=== PATIENT | male | born 1970 | race Caucasian/White ===

== ENCOUNTER 2021-08-31 12:45 | Inpatient (IN) ==
[2021-08-31] MEDS ORDERED: 0.9 % Sodium Chloride 1,000 ML IVC ONE (14:38)
[2021-08-31] MEDS ORDERED: *HR* HYDROmorphone (PF) 1 MG/ML SYRINGE IVP ONE (14:38)
[2021-08-31 15:11] LABS: Basophils % 0.1 %; Eosinophils % 0.1 %; Hematocrit 45.5 % (37.5-50.1); Hemoglobin 15.3 g/dL (12.9-16.9); Immature Granulocytes % 0.9 % (0-4); Lymphocytes # 0.7 K/mcL (0.6-4.6); Lymphocytes % 3.9 %; Mean Corpuscular HGB Conc 33.6 g/dL (31.6-35.5); Mean Corpuscular Hemoglobin 31.7 pg (28.0-33.3); Mean Corpuscular Volume 94.4 fL (83.0-100.0); Mean Platelet Volume 9.6 fL (9.4-12.4); Monocytes # 0.7 K/mcL (0.0-1.3); Monocytes % 4.2 %; Neutrophils # 15.6 K/mcL (1.6-8.9); Platelet Count 420 K/mcL (140-400); Red Blood Count 4.82 M/mcL (4.19-5.50); Red Cell Distribution Width 16.6 % (11.5-14.5); Segmented Neutrophils % 90.8 %; White Blood Count 17.1 K/mcL (4.3-11.1)
[2021-08-31 16:01] LABS: BUN/Creatinine Ratio 25 (6-26); Blood Urea Nitrogen 23 mg/dL (6-20); Calcium 9.6 mg/dL (8.6-10.3); Carbon Dioxide 21 mEq/L (23-29); Chloride 101 mEq/L (98-107); Glucose 117 mg/dL (70-105); Osmolality,Calculated 277 (280-300); Potassium 5.8 mEq/L (3.5-5.1); Sodium 131 mEq/L (136-145); eGFR For African Americans > 60 (> 60); eGFR For Non-African Americans > 60 (> 60)
[2021-08-31] MEDS ORDERED: Ondansetron 4 MG/2 ML VIAL IVP PRN (16:22)
[2021-08-31] MEDS ORDERED: Naloxone 0.4 MG/ML INJ IVP PRN (16:22)
[2021-08-31] MEDS ORDERED: *HR* HYDROmorphone 2 MG/ML SYRINGE IVP PRN (16:24)
[2021-08-31] MEDS ORDERED: Insulin Human Regular 10 UNIT in 0.9 % Sodium Chloride 10 ML IV ONE ×2 (16:24→18:00)
[2021-08-31] MEDS ORDERED: *HR* Dextrose 50 % in Water (Vial) 50 ML VIAL IVP ONE (16:24)
[2021-08-31] MEDS ORDERED: *HR* Acetaminophen w/Cod 300-30 mg 1 TAB TABLET PO PRN ×2 (16:25→18:02)
[2021-08-31] MEDS ORDERED: Morphine Sulfate 2 MG/ML SYRINGE IVP PRN (16:25)
[2021-08-31] MEDS: *HR* HYDROmorphone 2 MG/ML SYRINGE IVP PRN (18:10)
[2021-08-31] MEDS: SODIUM ZIRCONIUM CYCLOSILICATE 5 GM POWD.PACK PO SCH (18:11)
[2021-08-31] MEDS ORDERED: *HR* Dextrose 50 % in Water (Syg) 50 ML SYRINGE ONE (18:44)
[2021-08-31] MEDS ORDERED: Gadolinium Contrast Agent (WT Based) IV PRN (18:59)
[2021-08-31] MEDS ORDERED: *HR* Dextrose 50 % in Water (Syg) 50 ML SYRINGE IVP ONE (19:00)
[2021-08-31 19:46] LABS: Adenovirus Not Detected (Not Detect); Bordetella Pertussis Not Detected (Not Detect); Chlamydophila pneumoniae Not Detected (Not Detect); Coronavirus 229E Not Detected (Not Detect); Coronavirus HKU1 Not Detected (Not Detect); Coronavirus NL63 Not Detected (Not Detect); Coronavirus OC43 Not Detected (Not Detect); Human Metapneumovirus Not Detected (Not Detect); Human Rhinovirus/Enterovirus Not Detected (Not Detect); Influenza A Subtype 2009 H1 Not Detected (Not Detect); Influenza B Not Detected (Not Detect); Mycoplasma pneumoniae Not Detected (Not Detect); Parainfluenza Virus 1 Not Detected (Not Detect); Parainfluenza Virus 2 Not Detected (Not Detect); Parainfluenza Virus 3 Not Detected (Not Detect); Parainfluenza Virus 4 Not Detected (Not Detect); Respiratory Syncytial Virus Not Detected (Not Detect); SARS-CoV-2 Not Detected (Not Detect)
[2021-08-31] MEDS: Morphine Sulfate 2 MG/ML SYRINGE IVP PRN (23:12)
[2021-09-01] MEDS: Morphine Sulfate 2 MG/ML SYRINGE IVP PRN ×2 (02:43→11:25)
[2021-09-01] MEDS: *HR* HYDROmorphone 2 MG/ML SYRINGE IVP PRN ×2 (03:58→10:10)
[2021-09-01 06:14] LABS: Basophils % 0.1 %; Eosinophils # 0.1 K/mcL (0.0-0.6); Eosinophils % 0.5 %; Immature Granulocytes % 0.9 % (0-4); Lymphocytes # 1.4 K/mcL (0.6-4.6); Lymphocytes % 8.8 %; Mean Corpuscular HGB Conc 33.3 g/dL (31.6-35.5); Mean Corpuscular Hemoglobin 31.8 pg (28.0-33.3); Mean Corpuscular Volume 95.5 fL (83.0-100.0); Mean Platelet Volume 9.5 fL (9.4-12.4); Monocytes # 1.2 K/mcL (0.0-1.3); Monocytes % 7.9 %; Neutrophils # 12.6 K/mcL (1.6-8.9); Platelet Count 381 K/mcL (140-400); Red Cell Distribution Width 16.7 % (11.5-14.5); Segmented Neutrophils % 81.8 %; White Blood Count 15.4 K/mcL (4.3-11.1)
[2021-09-01 06:43] LABS: BUN/Creatinine Ratio 25 (6-26); Blood Urea Nitrogen 19 mg/dL (6-20); Calcium 8.9 mg/dL (8.6-10.3); Carbon Dioxide 24 mEq/L (23-29); Chloride 103 mEq/L (98-107); Glucose 105 mg/dL (70-105); Magnesium 2.2 mg/dL (1.6-2.6); Osmolality,Calculated 281 (280-300); Phosphorous 2.4 mg/dL (2.7-4.5); Potassium 3.9 mEq/L (3.5-5.1); Sodium 134 mEq/L (136-145); eGFR For African Americans > 60 (> 60); eGFR For Non-African Americans > 60 (> 60)
[2021-09-01] MEDS: SODIUM ZIRCONIUM CYCLOSILICATE 5 GM POWD.PACK PO SCH (11:37)
[2021-09-01] MEDS: Nicotine 21 MG PATCH.TD24 TD SCH (11:38)
[2021-09-01] MEDS ORDERED: *HR* HYDROmorphone 2 MG/ML SYRINGE IVP ONE ×2 (12:28→15:57)
[2021-09-01] MEDS: *HR* LORazepam Oral Conc 2 MG/ML PO PRN (15:29)
[2021-09-01] MEDS: *HR* HYDROmorphone PCA *PREMADE* 20 MG/1MG/ML (20mL) PCA VIAL IVC PRN (18:26)
[2021-09-02] MEDS: *HR* LORazepam Oral Conc 2 MG/ML PO PRN ×3 (03:37→18:59)
[2021-09-02] MEDS: *HR* Enoxaparin 40 MG/0.4 ML SYRINGE SQ SCH (05:16)
[2021-09-02] MEDS: Nicotine 21 MG PATCH.TD24 TD SCH (08:00)
[2021-09-02] MEDS: *HR* HYDROmorphone PCA *PREMADE* 20 MG/1MG/ML (20mL) PCA VIAL IVC PRN ×2 (08:59→20:57)
[2021-09-02] MEDS ORDERED: Metoclopramide 10 MG/2 ML VIAL IVP ONE (15:05)
[2021-09-02] MEDS ORDERED: Metoclopramide 10 MG/2 ML VIAL IVP PRN (15:05)
[2021-09-02] MEDS: Gabapentin 300 MG CAPSULE PO SCH ×2 (15:51→19:44)
[2021-09-02] MEDS: polyethylene glycoL 3350 17 GM POWD.PACK PO SCH (17:09)
[2021-09-02] MEDS: 0.9 % Sodium Chloride 1,000 ML IVC SCH (17:09)
[2021-09-03] MEDS: *HR* LORazepam Oral Conc 2 MG/ML PO PRN (00:57)
[2021-09-03 01:23] LABS: Basophils % 0.2 %; Eosinophils # 0.1 K/mcL (0.0-0.6); Eosinophils % 0.8 %; Hematocrit 50.5 % (37.5-50.1); Immature Granulocytes % 0.6 % (0-4); Lymphocytes % 6.2 %; Mean Corpuscular HGB Conc 32.1 g/dL (31.6-35.5); Mean Corpuscular Hemoglobin 32.1 pg (28.0-33.3); Mean Platelet Volume 9.9 fL (9.4-12.4); Monocytes # 0.9 K/mcL (0.0-1.3); Monocytes % 5.9 %; Neutrophils # 13.4 K/mcL (1.6-8.9); Platelet Count 375 K/mcL (140-400); Red Blood Count 5.05 M/mcL (4.19-5.50); Red Cell Distribution Width 17.2 % (11.5-14.5); Segmented Neutrophils % 86.3 %; White Blood Count 15.6 K/mcL (4.3-11.1)
[2021-09-03 01:30] LABS: Hemoglobin 16.2 g/dL (12.9-16.9)
[2021-09-03 01:43] LABS: BUN/Creatinine Ratio 39 (6-26); Blood Urea Nitrogen 34 mg/dL (6-20); Calcium 9.1 mg/dL (8.6-10.3); Carbon Dioxide 20 mEq/L (23-29); Chloride 107 mEq/L (98-107); Glucose 77 mg/dL (70-105); Magnesium 2.1 mg/dL (1.6-2.6); Osmolality,Calculated 290 (280-300); Phosphorous 2.3 mg/dL (2.7-4.5); Potassium 4.9 mEq/L (3.5-5.1); Sodium 137 mEq/L (136-145); eGFR For African Americans > 60 (> 60); eGFR For Non-African Americans > 60 (> 60)
[2021-09-03] MEDS ORDERED: *HR* HYDROmorphone (PF) 1 MG/ML SYRINGE IVP ONE (02:41)
[2021-09-03] MEDS: *HR* Enoxaparin 40 MG/0.4 ML SYRINGE SQ SCH (05:20)
[2021-09-03] MEDS: Gabapentin 300 MG CAPSULE PO SCH (08:00)
[2021-09-03] MEDS: *HR* HYDROmorphone PCA *PREMADE* 20 MG/1MG/ML (20mL) PCA VIAL IVC PRN ×2 (08:30→15:24)
[2021-09-03] MEDS: polyethylene glycoL 3350 17 GM POWD.PACK PO SCH (08:38)
[2021-09-03] MEDS ORDERED: *HR* LORazepam 2 MG/ML VIAL IVP PRN (09:03)
[2021-09-03] MEDS ORDERED: *HR* HYDROmorphone 2 MG/ML SYRINGE IVP ONE (09:29)
[2021-09-03] MEDS: Nicotine 21 MG PATCH.TD24 TD SCH (09:45)
[2021-09-03] MEDS: 0.9 % Sodium Chloride 1,000 ML IVC SCH ×2 (12:03→21:03)
[2021-09-03] MEDS ORDERED: diazePAM 2 MG TABLET PO PRN (12:38)
[2021-09-03] MEDS: Gabapentin 400 MG CAPSULE PO SCH ×2 (15:59→19:41)
[2021-09-03] MEDS: Budesonide/Formoterol 160/4.5 1 PUFF INH IH SCH (20:34)
[2021-09-04] MEDS: *HR* HYDROmorphone PCA *PREMADE* 20 MG/1MG/ML (20mL) PCA VIAL IVC PRN ×3 (01:00→18:12)
[2021-09-04 01:34] LABS: Basophils % 0.2 %; Eosinophils # 0.2 K/mcL (0.0-0.6); Eosinophils % 1.6 %; Hematocrit 41.6 % (37.5-50.1); Immature Granulocytes % 0.7 % (0-4); Lymphocytes # 0.7 K/mcL (0.6-4.6); Lymphocytes % 5.8 %; Mean Corpuscular HGB Conc 32.5 g/dL (31.6-35.5); Mean Corpuscular Hemoglobin 32.2 pg (28.0-33.3); Mean Corpuscular Volume 99.3 fL (83.0-100.0); Mean Platelet Volume 9.7 fL (9.4-12.4); Monocytes # 0.8 K/mcL (0.0-1.3); Monocytes % 6.9 %; Neutrophils # 10.3 K/mcL (1.6-8.9); Platelet Count 299 K/mcL (140-400); Red Blood Count 4.19 M/mcL (4.19-5.50); Red Cell Distribution Width 16.5 % (11.5-14.5); Segmented Neutrophils % 84.8 %; White Blood Count 12.2 K/mcL (4.3-11.1)
[2021-09-04 01:35] LABS: Hemoglobin 13.5 g/dL (12.9-16.9)
[2021-09-04 01:55] LABS: BUN/Creatinine Ratio 42 (6-26); Blood Urea Nitrogen 21 mg/dL (6-20); Calcium 7.8 mg/dL (8.6-10.3); Carbon Dioxide 20 mEq/L (23-29); Chloride 109 mEq/L (98-107); Glucose 76 mg/dL (70-105); Magnesium 1.8 mg/dL (1.6-2.6); Osmolality,Calculated 286 (280-300); Phosphorous 1.5 mg/dL (2.7-4.5); Sodium 137 mEq/L (136-145); eGFR For African Americans > 60 (> 60); eGFR For Non-African Americans > 60 (> 60)
[2021-09-04] MEDS: *HR* Enoxaparin 40 MG/0.4 ML SYRINGE SQ SCH (04:54)
[2021-09-04] MEDS: Budesonide/Formoterol 160/4.5 1 PUFF INH IH SCH ×2 (08:03→20:01)
[2021-09-04] MEDS: 0.9 % Sodium Chloride 1,000 ML IVC SCH ×3 (09:26→19:47)
[2021-09-04] MEDS: Nicotine 21 MG PATCH.TD24 TD SCH (09:27)
[2021-09-04] MEDS: polyethylene glycoL 3350 17 GM POWD.PACK PO SCH (09:28)
[2021-09-04] MEDS: Gabapentin 400 MG CAPSULE PO SCH ×3 (09:28→19:46)
[2021-09-04] MEDS ORDERED: *HR* FentaNYL PATCH 75 MCG PATCH TD SCH (10:00)
[2021-09-04] MEDS ORDERED: *HR* FentaNYL PATCH 100 MCG PATCH TD SCH (12:15)
[2021-09-04] MEDS ORDERED: *HR* FentaNYL PATCH 50 MCG PATCH TD SCH (12:15)
[2021-09-05] MEDS ORDERED: *HR* HYDROmorphone PCA *PREMADE* 20 MG/1MG/ML (20mL) PCA VIAL IVC PRN (01:00)
[2021-09-05] MEDS: 0.9 % Sodium Chloride 1,000 ML IVC SCH (04:40)
[2021-09-05] MEDS ORDERED: Acetaminophen 325 MG TABLET PO ONE (04:44)
[2021-09-05] MEDS: *HR* Enoxaparin 40 MG/0.4 ML SYRINGE SQ SCH (05:02)
[2021-09-05] MEDS: Nicotine 21 MG PATCH.TD24 TD SCH (08:33)
[2021-09-05] MEDS: polyethylene glycoL 3350 17 GM POWD.PACK PO SCH (08:33)
[2021-09-05] MEDS: Gabapentin 400 MG CAPSULE PO SCH (08:33)
[2021-09-05] MEDS: Budesonide/Formoterol 160/4.5 1 PUFF INH IH SCH (08:36)
[2021-09-05 09:28] LABS: Basophils % 0.3 %; Eosinophils # 0.3 K/mcL (0.0-0.6); Eosinophils % 2.6 %; Hematocrit 41.7 % (37.5-50.1); Hemoglobin 13.6 g/dL (12.9-16.9); Immature Granulocytes % 0.5 % (0-4); Lymphocytes # 0.7 K/mcL (0.6-4.6); Mean Corpuscular HGB Conc 32.6 g/dL (31.6-35.5); Mean Corpuscular Hemoglobin 32.1 pg (28.0-33.3); Mean Corpuscular Volume 98.3 fL (83.0-100.0); Mean Platelet Volume 10.3 fL (9.4-12.4); Monocytes # 0.9 K/mcL (0.0-1.3); Neutrophils # 9.1 K/mcL (1.6-8.9); Platelet Count 292 K/mcL (140-400); Red Blood Count 4.24 M/mcL (4.19-5.50); Red Cell Distribution Width 16.1 % (11.5-14.5); Segmented Neutrophils % 82.6 %
[2021-09-05 09:49] LABS: BUN/Creatinine Ratio 15 (6-26); Blood Urea Nitrogen 8 mg/dL (6-20); Calcium 9.2 mg/dL (8.6-10.3); Carbon Dioxide 25 mEq/L (23-29); Chloride 107 mEq/L (98-107); Glucose 99 mg/dL (70-105); Magnesium 1.9 mg/dL (1.6-2.6); Osmolality,Calculated 274 (280-300); Phosphorous 1.8 mg/dL (2.7-4.5); Potassium 4.8 mEq/L (3.5-5.1); Sodium 133 mEq/L (136-145); eGFR For African Americans > 60 (> 60); eGFR For Non-African Americans > 60 (> 60)
[2021-09-05 10:32] VITALS: BP 160/83; PULSE 76; TEMP 98.9; O2SAT 95
[2021-09-05] MEDS ORDERED: *HR* HYDROmorphone 2 MG TABLET PO PRN (11:16)
== END 2021-09-05 15:30 | disposition home or self-care (01) | DRG 861 ==
LOC: 2ANU 12:45 → EMEROOARM 12:45 → SUATTDRO 16:44 → 2ANU 17:28
PROVIDERS: ADMIT Family Medicine; ATTEND Hospitalist